=== PATIENT | male | born 1995 | race Caucasian/White ===

== ENCOUNTER 2018-08-04 18:14 | Emergency (ER) | payer MEDICAID, OTHER ==
[2018-08-04] MEDS: KETOROLAC 60 MG INJ IM (19:24)
== END 2018-08-04 19:40 | disposition home or self-care (01) ==
LOC: FTE 18:14
DX: M54.5 Low back pain (principal); M25.511 Pain in right shoulder; M25.512 Pain in left shoulder; I10 Essential (primary) hypertension
CPT/HCPCS: 96372; 99284-25